=== PATIENT | male | born 1965 | race Caucasian/White ===

== ENCOUNTER 2017-09-06 19:04 | Emergency (ER) | payer SELFPAY ==
[~2017-09-06] VITALS: Ht 165.1 cm; Wt 70.0 kg
[2017-09-06] MEDS ORDERED: SODIUM CHLORIDE 0.9% 1,000 ML IV ONE (19:40)
[2017-09-06 20:09] LABS: BASOPHILS % 0.9 % (0.0-2.0); EOSINOPHILS % 0.3 % (0.0-5.0); HEMATOCRIT. 39.8 % (42.0-52.0); HEMOGLOBIN. 13.9 g/dL (14.0-18.0); LYMPHOCYTES % 30.2 % (20.0-50.0); MEAN CORPUSCULAR HEMOGLOBIN 35.8 pg (28.0-32.0); MEAN CORPUSCULAR VOLUME 102.9 fL (80.0-94.0); MONOCYTES % 8.9 % (2.0-8.0); NEUTROPHILS % 59.7 % (40.0-76.0); PLATELET 197 x1000/uL (130-400); RED BLOOD CELL COUNT 3.87 mill/uL (4.7-6.1); RED CELL DISTRIBUTION WIDTH 12.8 % (11.6-14.6)
[2017-09-06 20:12] LABS: CHLORIDE 112 mEq/L (98-107)
[2017-09-06 20:24] LABS: CREATINE KINASE 198 IU/L (39-308)
[2017-09-06 20:43] LABS: ETHANOL BLOOD 419 mg/dL
[2017-09-07 04:13] VITALS: BP 111/71
[2017-09-07] MEDS ORDERED: CHLORDIAZEPOXIDE 25MG CAPSULE PO ONE (05:30)
== END 2017-09-07 06:47 | disposition home or self-care (01) ==
LOC: ER 19:04
DX: F10.129 Alcohol abuse with intoxication, unspecified (principal); E86.0 Dehydration; R40.4 Transient alteration of awareness; F17.290 Nicotine dependence, other tobacco product, uncomplicated
CPT/HCPCS: 36415; 70450; 71045; 80053; 82550; 85025; 93005; 96360; 99285; G0482; J7030

== ENCOUNTER 2018-05-19 20:39 | Emergency (ER) | payer SELFPAY ==
[~2018-05-19] VITALS: Ht 167.6 cm; Wt 73.0 kg
[2018-05-19] MEDS ORDERED: ONDANSETRON HCL 4MG/2ML INJ IV STA (23:54)
[2018-05-19] MEDS ORDERED: MORPHINE SULFATE 4 MG/ML CPJ (NOT FOR IM USE) IV STA (23:54)
[2018-05-19] MEDS ORDERED: SODIUM CHLORIDE 0.9% 1,000 ML IV ONE (23:54)
[2018-05-20] MEDS ORDERED: LIDOCAINE 1%/EPI 1:100,000 10 ML VIAL IJ ONE
[2018-05-20] MEDS ORDERED: BACITRACIN ZINC OINT UDPKT TOP ONE
[2018-05-20] MEDS ORDERED: TETANUS, DIPHTHERIA, PERTUSSIS VAC/PF 0.5ML (>7YR OLD) IM ONE
[2018-05-20] MEDS ORDERED: LIDOCAINE HCL/EPINEPHRINE 1%-EPI 1:100,000 20 ML VIAL INFIL SCH (00:45)
[2018-05-20 00:47] LABS: BASOPHILS % 0.5 % (0.0-2.0); EOSINOPHILS % 0.1 % (0.0-5.0); HEMATOCRIT. 37.2 % (42.0-52.0); LYMPHOCYTES % 17.8 % (20.0-50.0); MEAN CORPUSCULAR HEMOGLOBIN 36.2 pg (28.0-32.0); MEAN CORPUSCULAR VOLUME 103.3 fL (80.0-94.0); MEAN PLATELET VOLUME 7.3 fl (7.4-10.4); MONOCYTES % 6.9 % (2.0-8.0); NEUTROPHILS % 74.7 % (40.0-76.0); PLATELET 172 x1000/uL (130-400)
[2018-05-20 01:38] LABS: CHLORIDE 107 mEq/L (98-107)
[2018-05-20 01:42] LABS: ETHANOL BLOOD 93 mg/dL
[2018-05-20] MEDS ORDERED: IOHEXOL-300 100 ML BOTTLE ONE (02:14)
[2018-05-20] MEDS ORDERED: LEVETIRACETAM 500MG PREMIX 100 ML IV ONE (02:15)
[2018-05-20] MEDS ORDERED: LIDOCAINE HCL 2%/EPINEPHRINE/PF 10 ML VIAL INFIL ONE (02:45)
[2018-05-20] MEDS ORDERED: LIDOCAINE HCL/PF 1% 10 MG/ML 30ML VIAL INFIL ONE (02:45)
[2018-05-20] MEDS ORDERED: LIDOCAINE HCL/EPINEPHRINE 1%-EPI 1:100,000 20 ML VIAL INFIL ONE (02:45)
[2018-05-20] MEDS ORDERED: LEVETIRACETAM 500MG PREMIX 100 ML IV SCH (03:00)
[2018-05-20] MEDS ORDERED: CEFAZOLIN 1000MG PREMIX 50 ML IV ONE (03:45)
[2018-05-20] MEDS ORDERED: CEFAZOLIN 1000MG PREMIX 50 ML IV SCH (05:00)
[2018-05-20 05:26] VITALS: BP 129/72
== END 2018-05-20 05:44 | disposition short-term general hospital (02) ==
LOC: ER 20:39
DX: S01.81XA Laceration without foreign body of other part of head, initial encounter (principal); S01.311A Laceration without foreign body of right ear, initial encounter; S51.012A Laceration without foreign body of left elbow, initial encounter; S80.212A Abrasion, left knee, initial encounter; S06.2X0A Diffuse traumatic brain injury without loss of consciousness, initial encounter; F10.129 Alcohol abuse with intoxication, unspecified; Y90.4 Blood alcohol level of 80-99 mg/100 ml; V89.2XXA Person injured in unspecified motor-vehicle accident, traffic, initial encounter; Y93.89 Activity, other specified; Y92.89 Other specified places as the place of occurrence of the external cause; Y99.8 Other external cause status
CPT/HCPCS: 12001; 12016; 36415; 70450; 70486; 70491; 71045; 73080; 73560; 80053; 80320; 85025; 90471; 90715; 96365; 96367; 96368; 96375; 99291; J0690; J1953; J2270; J2405; J3490; J7030; Q9967; Z7610; G0480

== ENCOUNTER 2018-07-01 10:08 | Emergency (ER) | payer SELFPAY ==
[~2018-07-01] VITALS: Ht 162.6 cm; Wt 71.0 kg
[2018-07-01 10:12] VITALS: BP 164/92
== END 2018-07-01 11:46 | disposition left against medical advice (07) ==
LOC: ER 10:08
DX: S01.81XD Laceration without foreign body of other part of head, subsequent encounter (principal); S51.812D Laceration without foreign body of left forearm, subsequent encounter; Z53.21 Procedure and treatment not carried out due to patient leaving prior to being seen by health care provider; X58.XXXD Exposure to other specified factors, subsequent encounter